=== PATIENT | female | born 1960 | race Caucasian/White ===

== ENCOUNTER → 2017-05-28 | Day surgery (SDC) | payer OTHER ==
--- NOTE | 2017-05-28 10:57 | MMO ---
STEREOTACTIC GUIDED BIOPSY RIGHT BREAST MICROCALCIFICATIONS SURGICAL SPECIMEN MAMMOGRAPHY DIAGNOSTIC RIGHT MAMMOGRAM POST BIOPSY: HISTORY: Abnormal mammograms. Right breast microcalcifications. FINDINGS: After explaining the procedure and answering all questions, the microcalcifications at the superomed ial aspect of the right breast were visualized. Sterile technique, buffered local anesthesia, stere otactic guidance, and a superior approach were used to carefully advance the tip of a 12 gauge vacuu m-assisted needle to the level of the microcalcifications. Position was confirmed with stereotactic imaging. Six vacuum-assisted biopsy specimens were obtained without difficulty and eventually subm itted to pathology for evaluation. Localization clip was placed in the biopsy bed and position was confirmed with stereotactic imaging. The needle was removed. Surgical specimen mammography shows microcalcifications o be present within the tissue specimen. Post procedure mammogram shows localization clip to be present within the biopsy bed with minimal re sidual calcifications. Heterogeneously dense fibroglandular tissue and benign-appearing calcificati ons are also present. The patient tolerated the procedure well and was dismissed in good condition. IMPRESSION: Technically successful stereotactic-guided biopsy right breast microcalcifications. Pathology is pe nding. POS: [facility]
== END ==
LOC: MAMMO 06:59
PROVIDERS: ATTEND Obstetrics & Gynecology
PROC: BH00ZZZ Plain Radiography of Right Breast (ICD-10-PCS; principal; 2017-05-28)
DX: N60.81 Other benign mammary dysplasias of right breast (principal)
CPT/HCPCS: 19081; 76098; 88305; 88341; 88342; G0206-RT

== ENCOUNTER 2018-03-11 17:00 | Outpatient (CLI) | payer OTHER | END 2018-03-11 17:01 | disposition home or self-care (01) | LOC: SLEEPLAB 17:00 | PROVIDERS: ATTEND Family Medicine | DX: G47.33 Obstructive sleep apnea (adult) (pediatric) (principal); I10 Essential (primary) hypertension; F41.9 Anxiety disorder, unspecified | CPT/HCPCS: 95806 ==

== ENCOUNTER 2018-05-01 16:38 | Outpatient (CLI) | payer OTHER ==
[2018-05-01 17:08] LABS: #Basophils 0.1 thou/uL (0.0-0.2); #Eosinphils 0.2 thou/uL (0.0-0.7); #Lymphocytes 2.8 thou/uL (1.20-3.40); #Monocytes 0.5 thou/uL (0.11-0.59); #Neutrophils 3.8 thou/uL (1.40-6.50); %Basophils 1.1 % (0.0-1.0); %Eosinophils 3.2 % (0.0-10.0); %Monocytes 6.3 % (0.0-10.0); %Neutrophils 51.4 % (42.0-75.0); Hemoglobin 13.4 g/dL (12.0-16.0); Mean Corpuscular HGB CONC 34.6 g/dL (32.0-36.0); Mean Corpuscular Hemoglobin 31.8 pg (27.0-31.0); Mean Corpuscular Volume 91.9 fL (78.0-98.0); Mean Platelet Volume 6.6 fL (7.4-10.4); Platelet Count 249 thou/uL (130-400); RBC Distribution Width 11.3 % (11.5-14.5); Red Blood Cell (RBC) Count 4.22 mill/uL (4.20-5.40); White Blood Cell (WBC) Count 7.4 thou/uL (4.8-10.8)
[2018-05-01 17:33] LABS: ALT (SGPT) 12 U/L (8-55); AST (SGOT) 15 U/L (5-34); Albumin 4.3 g/dL (3.5-5.0); Alkaline Phosphatase 75 U/L (40-150); Anion Gap 12 mmol/L (10-20); BUN (Urea Nitrogen) 25 mg/dL (9.8-20.1); Bilirubin, Total 0.3 mg/dL (0.2-1.2); Calc. Creatinine Clearance 0 mL/min (70-130); Calcium 9.7 mg/dL (7.8-10.44); Carbon Dioxide 25 mmol/L (22-29); Chloride 104 mmol/L (98-107); Estimated GFR-MDRD 78; Globulin 3.1 g/dL (2.4-3.5); Glucose 94 mg/dL (70-105); Potassium 3.4 mmol/L (3.5-5.1); Protein, Total 7.4 g/dL (6.0-8.3); Sodium 138 mmol/L (136-145)
[2018-05-02 09:38] VITALS: BMI 26.7
--- NOTE | 2018-05-02 17:03 | EKG ---
Test Reason : Blood Pressure : / mmHG Vent. Rate : 067 BPM Atrial Rate : 067 BPM P-R Int : 162 ms QRS Dur : 086 ms QT Int : 404 ms P-R-T Axes : 054 023 027 degrees QTc Int : 426 ms Normal sinus rhythm Possible Anterior infarct , age undetermined Abnormal ECG Confirmed by IVONNE PACE ([id number]) on 05/02/2018 5:03:40 PM Referred By: JULIA Confirmed By:IVONNE PACE
== END 2018-05-01 16:39 | disposition home or self-care (01) ==
LOC: LABBT 16:38
PROVIDERS: ATTEND Surgery
DX: Z01.818 Encounter for other preprocedural examination (principal); K40.90 Unilateral inguinal hernia, without obstruction or gangrene, not specified as recurrent
CPT/HCPCS: 80053; 85025; 93005; 93010

== ENCOUNTER → 2018-05-03 | Day surgery (SDC) | payer OTHER ==
[2018-05-01 17:00] VITALS: BMI 26.7
[~2018-05-03] MED LIST: Bupivacaine/Epinephrine 0.25% 30 ML VIAL ONE; Fentanyl 100 MCG/2 ML VIAL ONE
== END ==
LOC: SDC 11:28
PROVIDERS: ATTEND Surgery
DX: K40.90 Unilateral inguinal hernia, without obstruction or gangrene, not specified as recurrent (principal); Z53.8 Procedure and treatment not carried out for other reasons
CPT/HCPCS: J3010

== ENCOUNTER 2018-06-07 07:47 | Day surgery (SDC) | payer OTHER ==
[2018-06-06 08:48] VITALS: BMI 27.1
[2018-06-07 08:40] LABS: #Basophils 0.1 thou/uL (0.0-0.2); #Eosinphils 0.2 thou/uL (0.0-0.7); #Lymphocytes 2.2 thou/uL (1.20-3.40); #Monocytes 0.5 thou/uL (0.11-0.59); #Neutrophils 2.7 thou/uL (1.40-6.50); %Eosinophils 3.6 % (0.0-10.0); %Lymphocytes 38.6 % (21.0-51.0); %Monocytes 9.1 % (0.0-10.0); %Neutrophils 47.7 % (42.0-75.0); Hemoglobin 13.2 g/dL (12.0-16.0); Mean Corpuscular HGB CONC 33.2 g/dL (32.0-36.0); Mean Corpuscular Hemoglobin 30.9 pg (27.0-31.0); Mean Corpuscular Volume 93.3 fL (78.0-98.0); Platelet Count 264 thou/uL (130-400); RBC Distribution Width 11.4 % (11.5-14.5); Red Blood Cell (RBC) Count 4.26 mill/uL (4.20-5.40); White Blood Cell (WBC) Count 5.6 thou/uL (4.8-10.8)
[2018-06-07] MEDS ORDERED: Levofloxacin 500 mg/D5W 100 ml Premix Bag ONE (08:41)
[2018-06-07 09:00] LABS: ALT (SGPT) 11 U/L (8-55); AST (SGOT) 15 U/L (5-34); Albumin 4.2 g/dL (3.5-5.0); Alkaline Phosphatase 63 U/L (40-150); Anion Gap 12 mmol/L (10-20); BUN (Urea Nitrogen) 16 mg/dL (9.8-20.1); Bilirubin, Total 0.4 mg/dL (0.2-1.2); Calc. Creatinine Clearance 99 mL/min (70-130); Calcium 9.8 mg/dL (7.8-10.44); Carbon Dioxide 26 mmol/L (22-29); Chloride 107 mmol/L (98-107); Estimated GFR-MDRD 83; Globulin 2.9 g/dL (2.4-3.5); Glucose 85 mg/dL (70-105); Potassium 3.3 mmol/L (3.5-5.1); Protein, Total 7.1 g/dL (6.0-8.3); Sodium 142 mmol/L (136-145)
[2018-06-07] MEDS ORDERED: Bupivacaine/Epinephrine 0.25% 30 ML VIAL ONE (09:02)
[2018-06-07] MEDS ORDERED: Fentanyl 100 MCG/2 ML VIAL ONE ×3 (09:06→11:43)
[2018-06-07] MEDS ORDERED: Dexamethasone 20 MG/5 ML VIAL ONE (09:55)
[2018-06-07] MEDS ORDERED: Lidocaine 1% PF 5 ML VIAL ONE (09:55)
[2018-06-07] MEDS ORDERED: PROPOFOL 200 MG/20 ML VIAL ONE (09:55)
[2018-06-07] MEDS ORDERED: Ondansetron HCl/PF 4 MG/2 ML Vial ONE (09:55)
--- NOTE | 2018-06-07 12:23 | OP ---
DATE OF PROCEDURE: 06/07/2018 PREOPERATIVE DIAGNOSIS: Left inguinal hernia. SURGEON: Reynaldo Kwan M.D. PROCEDURE PERFORMED: Left groin exploration, recurrent left inguinal hernia repair. INDICATIONS: This is a 57-year-old female who many years ago had had a previous inguinal hernia repa ir. She could not remember which side it was on. She presented with a bulge that was painful in the left groin. FINDINGS: I explored the femoral canal, I did not see any evidence of femoral hernia. Once I had op ened up the external oblique fascia, inspect the mesh, there was a direct inguinal hernia at the pubi c tubercle. PROCEDURE IN DETAIL: After informed consent was obtained, the patient was taken to the operating suzy m and given general mask anesthesia, placed in the supine position. The abdomen was prepped and drap ed in usual fashion. Local anesthesia infiltrated subcutaneously and deep and a transverse left ingu inal incision was performed. The subcu divided sharply down to the fascia external oblique. Now the re was scar incised the fascia of the external oblique. It was adherent to mesh underneath, so I did not feel a definite hernia at this point and assumed that perhaps she might have a femoral hernia as a source of this since this mesh at all felt pretty good. So I wound up dissecting down to the femo ral canal, but there was no femoral hernia there, so I wound up external oblique fascia fr om the mesh and there was a small defect at the pubic tubercle. This was further opened along the ed ge of the mesh then what I did was a shouldice repair using the existing mesh, suturing it to the und ersurface of the rectus sheath then sutured the rectus sheath over to the transversalis fascia with a running 2-0 Vicryl suture, so the mesh went underneath and became an overlap. This was then sewn ba ck upon itself and tied at the pubic tubercle. Then, the external oblique fascia was closed with a r unning 3-0 Vicryl. Then hemostasis assured, the wound irrigated. The subcu closed with interrupted 3-0 Vicryl. Skin closed with a running subcuticular 4-0 Rapide. Steri-Strips applied. Sterile band age applied. The patient tolerated the procedure well and was transferred to recovery in good condit ion. Sponge and needle count verified correct x2.
[2018-06-07] MEDS ORDERED: HYDROcodone/Acetaminophen 10/325 mg Tablet ONE (14:00)
--- NOTE | 2018-06-09 21:11 | EKG ---
Test Reason : PREOP Blood Pressure : / mmHG Vent. Rate : 072 BPM Atrial Rate : 072 BPM P-R Int : 160 ms QRS Dur : 088 ms QT Int : 418 ms P-R-T Axes : 042 007 016 degrees QTc Int : 457 ms Normal sinus rhythm Normal ECG When compared with ECG of 01-MAY-2018 16:52, No significant change was found Confirmed by Carl PORTILLO ([id number]) on 06/09/2018 9:10:57 PM Referred By: JULIA Confirmed By:Carl PORTILLO
== END 2018-06-07 14:23 | disposition home or self-care (01) ==
LOC: SDC 07:47
PROVIDERS: ATTEND Surgery
PROC: 0YU60JZ Supplement Left Inguinal Region with Synthetic Substitute, Open Approach (ICD-10-PCS; principal; 2018-06-07)
DX: K40.90 Unilateral inguinal hernia, without obstruction or gangrene, not specified as recurrent (principal); I10 Essential (primary) hypertension; K21.9 Gastro-esophageal reflux disease without esophagitis; Z79.899 Other long term (current) drug therapy
CPT/HCPCS: 36415; 80053; 85025; 93005; 93010; 96374; 96376; J1100; J1956; J2001; J2405; J2704; J3010

== ENCOUNTER 2018-06-27 17:58 | Emergency (ER) | payer OTHER ==
[~2018-06-27 17:58] MED LIST changes: -Bupivacaine/Epinephrine 0.25% 30 ML VIAL ONE; -Fentanyl 100 MCG/2 ML VIAL ONE; +Iopamidol 370 76% 100 ML VIAL ONE
[2018-06-27 19:12] LABS: #Basophils 0.1 thou/uL (0.0-0.2); #Eosinphils 0.5 thou/uL (0.0-0.7); #Lymphocytes 2.3 thou/uL (1.20-3.40); #Monocytes 0.5 thou/uL (0.11-0.59); #Neutrophils 3.7 thou/uL (1.40-6.50); %Basophils 1.9 % (0.0-1.0); %Eosinophils 7.3 % (0.0-10.0); %Lymphocytes 32.1 % (21.0-51.0); %Monocytes 7.1 % (0.0-10.0); %Neutrophils 51.6 % (42.0-75.0); Hemoglobin 13.3 g/dL (12.0-16.0); Mean Corpuscular HGB CONC 33.5 g/dL (32.0-36.0); Mean Corpuscular Hemoglobin 29.7 pg (27.0-31.0); Mean Corpuscular Volume 88.9 fL (78.0-98.0); Mean Platelet Volume 7.6 fL (7.4-10.4); Platelet Count 244 thou/uL (130-400); RBC Distribution Width 11.3 % (11.5-14.5); Red Blood Cell (RBC) Count 4.46 mill/uL (4.20-5.40); White Blood Cell (WBC) Count 7.2 thou/uL (4.8-10.8)
[2018-06-27 19:28] LABS: ALT (SGPT) 14 U/L (8-55); AST (SGOT) 17 U/L (5-34); Albumin 4.1 g/dL (3.5-5.0); Alkaline Phosphatase 73 U/L (40-150); Anion Gap 13 mmol/L (10-20); BUN (Urea Nitrogen) 15 mg/dL (9.8-20.1); Bilirubin, Total 0.5 mg/dL (0.2-1.2); CK (CPK) 62 U/L (29-168); CKMB 0.5 ng/mL (0-6.6); Calc. Creatinine Clearance 0 mL/min (70-130); Calcium 9.8 mg/dL (7.8-10.44); Carbon Dioxide 24 mmol/L (22-29); Chloride 106 mmol/L (98-107); Estimated GFR-MDRD 84; Glucose 101 mg/dL (70-105); Lipase 65 U/L (8-78); Protein, Total 7.1 g/dL (6.0-8.3); Sodium 140 mmol/L (136-145); Troponin I Less than 0.010 ng/mL (< 0.028)
[2018-06-27] MEDS ORDERED: Bacitracin Zinc Ointment 30 gm TUBE ONE (20:54)
[2018-06-27] MEDS ORDERED: Bacitracin Zinc 1 Packet ONE (20:56)
--- NOTE | 2018-06-27 22:18 | CT ---
CT ABDOMEN AND PELVIS WITH IV CONTRAST: 06/27/18 HISTORY: Generalized malaise for two days. Abdominal pain. Inguinal hernia repair three weeks ago. Patient rep orts gush of blood from wound two days ago. Pain. COMPARISON: None available. FINDINGS: There is dependent bibasilar atelectasis. There is a 2.1 cm hypodense cystic lesion seen within the medial and anterior aspect of the superior pole of the spleen with additional tiny subcapsular hypodense lesions also seen at the lateral and pe ripheral aspect of the superior pole of the spleen with larger subcapsular cystic structure measuring 1 cm also demonstrating fluid attenuation. Findings may be related to a small subcapsular cyst. Sandra lar findings also seen in the inferior pole of the spleen which is also in a subcapsular location. The pancreas, bilateral adrenal glands, kidneys, and urinary bladder demonstrate a normal CT appearan ce. There is a tiny subcentimeter to small to characterize hypodense lesion in the superior pole left kidney. The abdominal aorta, uterus, and adnexal structures have a normal CT appearance. There is colonic diverticulosis. The appendix is visualized and normal in caliber. There is a low density structures seen within the r egion of the left inferolateral pelvis at the level of the inguinal canal likely related to prior her evelyn repair. There is subcutaneous soft tissue swelling and inflammatory changes seen within the left inguinal region left anterolateral aspect of the pelvis. There is no fluid collection seen in this re gion to suggest an abscess collection. No free fluid or fluid collection is seen in the abdomen or pelvis. Degenerative changes are seen in the spine. IMPRESSION: 1. Postsurgical changes related to left inguinal hernia repair with inflammatory stranding and w hat is likely small amount of subcutaneous edema related to the postsurgical changes. There is no flu id collection seen to suggest an abscess. 2. Colonic diverticulosis. 3. Subcapsular cystic structures within the spleen, with larger lesions demonstrating attenuatio n coefficients most compatible with cysts. 4. Subcentimeter too small to characterize hypodense lesions in the left kidney. 5. Tiny fat containing umbilical hernia. 1. POS: [facility]
== END 2018-06-27 21:12 | disposition home or self-care (01) ==
LOC: SCSER 17:58
DX: K91.873 Postprocedural seroma of a digestive system organ or structure following other procedure (principal); I10 Essential (primary) hypertension; Z79.899 Other long term (current) drug therapy
CPT/HCPCS: 74177; 80053; 82550; 82553; 83690; 84484; 85025; 93005

== ENCOUNTER 2018-07-10 14:30 | Outpatient (CLI) | payer OTHER | END 2018-07-10 14:31 | disposition home or self-care (01) | LOC: ULT 14:30 | PROVIDERS: ATTEND Family Medicine | DX: R06.02 Shortness of breath (principal); I08.1 Rheumatic disorders of both mitral and tricuspid valves | CPT/HCPCS: 93306 ==

== ENCOUNTER 2018-08-30 10:29 | Outpatient (CLI) | payer OTHER ==
--- NOTE | 2018-08-30 14:49 | MRI ---
NONCONTRAST MRI CERVICAL SPINE: DATE: 08/30/2018. HISTORY: Cervical radiculopathy. The patient is complaining of neck pain for several weeks radiating down the left shoulder. No known injury. COMPARISON: None available. FINDINGS: There are multilevel degenerative changes in the cervical spine. There is slight reversal of the nor mal cervical lordotic curvature centered at the level of the C5 vertebral body. There is mild marrow signal edema seen within the C5 vertebral body as well as along the superior end plates of the C6 an d C7 vertebral bodies and there is narrowing of the intervertebral disks and there is loss of height at the intervertebral disks at this level, and these findings are most likely attributable to promine nt degenerative changes. Fractures are thought less likely. No significant height loss can be appre ciated. There is slight anterolisthesis of C4 on C5 with slight retrolisthesis of C5 on C6. Cervicomedullary junction has a normal MRI appearance. C2-3 level: There is no disk bulge or disk herniation. Central spinal canal and neural foramen are patent. C3-4 level: There are facet degenerative changes seen on the left with minimal disk-osteophyte compl ex present. Findings result in moderate left-sided neural foraminal narrowing. The central spinal c anal and right neural foramen are patent. C4-5 level: Slight anterolisthesis of C4 on C5 is present. There is a broad-based disk-osteophyte c omplex present. Facet hypertrophic changes are noted, greater on the left. There is mild effacement of the central aspect of the ventral subarachnoid space with encroachment on the anterior aspect of the spinal cord. The right neural foramen is patent, but there is mild to moderate left-sided neural foraminal narrowing. C5-6 level: There are prominent end plate degenerative changes with mild retrolisthesis of C5 on C6. A broad-based disk-osteophyte complex is present and there are mild facet degenerative changes. Th ere is moderate to severe right and mild left-sided neural foraminal narrowing. There is mild genera lized narrowing of the central spinal canal with slight flattening of the anterior aspect of the spin al cord, but normal signal intensity is present in the spinal cord. C6-7 level: There is loss of intervertebral disk height. There is a broad-based disk-osteophyte com plex present. This narrows the ventral subarachnoid space. The right neural foramen is patent, but there is severe left-sided neural foraminal narrowing present. Facet hypertrophic changes are seen o n the left. C7-T1 level: There is a mild broad-based disk-osteophyte complex, but the central spinal canal and n eural foramina are patent at this level. T1-2 level: There is slight anterolisthesis of T1 on T2. However, the central spinal canal and neur al foramina are patent. Mild facet degenerative changes are present. There is mucosal thickening present within the right maxillary antrum. Prevertebral soft tissues demonstrate normal signal intensity. IMPRESSION: 1. Multilevel degenerative changes including mild abnormal signal intensity within the C5, C6, and C 7 vertebral bodies and greatest in the C5 vertebral body which is thought to most likely be attributa ble to prominent degenerative changes. A slight compression deformity involving the inferior end lopez te of the C5 vertebral body cannot be entirely excluded, but given the irregularity of the inferior e nd plate of the C5 vertebral body, this is most likely related to prominent degenerative changes. 2. Slight reversal of the normal cervical lordotic curvature. There is slight anterolisthesis of C4 on C5 with slight retrolisthesis of C5 on C6. 3. Multilevel degenerative changes seen throughout the cervical spine as described above. 4. Mild sinus disease. POS: [facility]
== END 2018-08-30 10:30 | disposition home or self-care (01) ==
LOC: TBSIIMAG 10:29
PROVIDERS: ATTEND Family Medicine
DX: M47.22 Other spondylosis with radiculopathy, cervical region (principal); M40.50 Lordosis, unspecified, site unspecified; M43.12 Spondylolisthesis, cervical region; M47.813 Spondylosis without myelopathy or radiculopathy, cervicothoracic region; J32.9 Chronic sinusitis, unspecified
CPT/HCPCS: 72141

== ENCOUNTER 2018-12-11 15:47 | Outpatient (CLI) | payer OTHER ==
--- NOTE | 2018-12-11 16:27 | RAD ---
EXAM: XR Lumbar Spine Comp W Bending PROVIDED CLINICAL HISTORY: Low back pain. Ankylosing spondylitis. COMPARISON: None available. FINDINGS: There are 5 nonrib-bearing lumbar-type vertebral bodies. The vertebral body heights are within normal limits. No fracture is seen. There is trace retrolisthesis of L3 on L4 which does appear to correct with flexion compared to extension and neutral positioning. There is narrowing of the L3-4 and L5-S1 intervertebral disc spaces with endplate degenerative changes at these levels. Sacroiliac joints have a normal and symmetric appearance bilaterally. IMPRESSION: Degenerative changes at the L3-4 and L5-S1 levels. There is trace retrolisthesis of L3 on L4 which do es appear to correct with flexion.
== END 2018-12-11 15:48 | disposition home or self-care (01) ==
LOC: BICRAD 15:47
PROVIDERS: ATTEND Preventive Medicine Medical Toxicology
DX: M54.5 Low back pain (principal); M47.816 Spondylosis without myelopathy or radiculopathy, lumbar region; M47.817 Spondylosis without myelopathy or radiculopathy, lumbosacral region
CPT/HCPCS: 72100

== ENCOUNTER 2019-07-21 14:58 | Outpatient (CLI) | payer OTHER ==
--- NOTE | 2019-07-21 16:46 | CT ---
CT of the abdomen and pelvis: 07/21/2019 COMPARISON: 06/27/2018 HISTORY: Left lower quadrant pain TECHNIQUE: Axial CT imaging at 5 mm intervals from lung bases through pubic symphysis with IV and ora l contrast. Coronal reformatted imaging and sagittal reformatted imaging obtained. FINDINGS: Imaged lung bases unremarkable. No free intraperitoneal air or fluid. Liver, gallbladder, spleen, pancreas, adrenal glands, and kidneys demonstrate no acute findings. Mult iple subcentimeter hypodense lesions are again noted within the spleen, unchanged when compared to the prior examination. There are scattered diverticula involving the descending colon and sigmoid colon. There is a focal ar ea of wall thickening of the distal descending colon with adjacent inflammatory fat stranding, most consistent with a focal area of diverticulitis. No associated abscess or obstruction. There is no lymphadenopathy in the abdomen/pelvis. The vascular structures of the abdomen/pelvis appear patent. There is a sclerotic lesion within the posterior aspect of the right iliac bone measuring 9 mm, uncha nged when compared to the prior examination. There is degenerative change with disc space narrowing and vacuum disc formation at L3-4 and L5-S1. N o worrisome lytic or blastic bone lesion. IMPRESSION: Findings consistent with acute diverticulitis of the descending colon. No evidence for ab scess or perforation. Recommend direct visualization following treatment to document resolution. CODE T Message sent via [employer] to Dr. Escobar at the time of interpretation on 07/21/2019.
== END 2019-07-21 14:59 | disposition home or self-care (01) ==
LOC: SCSCT 14:58
PROVIDERS: ATTEND Family Medicine
DX: R10.32 Left lower quadrant pain (principal)
CPT/HCPCS: 74177; Q9967

== ENCOUNTER 2019-08-08 10:13 | Outpatient (CLI) | payer OTHER ==
--- NOTE | 2019-08-08 10:31 | BD ---
EXAM: DEXA bone density examination HISTORY: 59-year-old postmenopausal female for screening COMPARISON: None FINDINGS: L1--bone mineral density 0.885 g/sq cm; T score -1.0 L2--bone mineral density 0.985 g/sq cm; T score -0.4 L3--bone mineral density 1.102 g/sq cm; T score 0.2 L4--bone mineral density 1.013 g/sq cm; T score -0.4 Total L1-L4--bone mineral density 0.999 g/sq cm; T score -0.4 Left femoral neck--bone mineral density0.757; T score -0.8 Total proximal left femur--bone mineral density 0.953; T score 0.1 IMPRESSION: Normal bone density
== END 2019-08-08 10:14 | disposition home or self-care (01) ==
LOC: BICMAMMO 10:13
PROVIDERS: ATTEND Preventive Medicine Medical Toxicology
DX: Z13.820 Encounter for screening for osteoporosis (principal); N95.1 Menopausal and female climacteric states
CPT/HCPCS: 77080